=== PATIENT | female | born 1965 | race Caucasian/White ===

== ENCOUNTER 2018-09-21 19:52 | Emergency (ER) | payer BC ==
[~2018-09-21] VITALS: Ht 170.2 cm; Wt 112.0 kg
[2018-09-21 19:59] VITALS: BP 176/99
--- NOTE | 2018-09-21 20:15 | NUR ---
FIRST CONTACT WITH PT. PT REPORTS GOOPY EYE TO RIGHT EYE. PT REPORTS THAT IT HURTS ITCHES AND FEELS LIKE GLASS IN EYE. PT RPEORTS BLURRY VISION WITH DRIANAGE. DENIES TRUAMA. PT'S AOX4. RESPS EVEN AND UNLABORED.
[2018-09-21] MEDS ORDERED: FLUORESCEIN OPHTHALMIC 1 MG STRIP ONE (20:35)
[2018-09-21] MEDS ORDERED: PROPARACAINE OPHTH 0.5%, 15ML ONE (20:35)
[2018-09-21] MEDS ORDERED: PROPARACAINE OPHTH 0.5%, 15ML EACHEYE ONE (21:00)
[2018-09-21] MEDS ORDERED: FLUORESCEIN OPHTHALMIC 1 MG STRIP EACHEYE ONE (21:00)
--- NOTE | 2018-09-21 21:16 | NUR ---
PT GIVEN DC INSTRUCTIONS AND SCRIPT. PT EDCUATED REGARDING DC MEDICATION. PT'S AOX4. RESPS EVEN AND UNLBAORED. NO ACUTE DISTRESS AT DC.
== END 2018-09-21 21:17 | disposition home or self-care (01) ==
LOC: ED 21:10
DX: H10.021 Other mucopurulent conjunctivitis, right eye (principal)
CPT/HCPCS: 99283